=== PATIENT | female | born 2000 | race Caucasian/White ===

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

== ENCOUNTER → 2020-01-12 | Outpatient (CLI) | payer OTHER ==
[~2020-01-12] MED LIST changes: +ONDA-105 PO; -ONDA4TAB10 PO
== END ==
LOC: CARD 13:12
PROVIDERS: ATTEND Internal Medicine Interventional Cardiology
DX: R42 Dizziness and giddiness (principal); R55 Syncope and collapse; E66.9 Obesity, unspecified; R00.2 Palpitations; R06.02 Shortness of breath
CPT/HCPCS: 93306

== ENCOUNTER → 2021-06-26 | Outpatient (CLI) | payer OTHER ==
[~2021-06-26] MED LIST changes: +BUPR150T24 PO; -BUPR150T7 PO; +CLN.1T PO; -CLON0.1T PO
== END ==
LOC: LABNPT 06:47
PROVIDERS: ATTEND Family Medicine
DX: Z53.9 Procedure and treatment not carried out, unspecified reason (principal)

== ENCOUNTER 2022-09-12 11:02 | Emergency (ER) | payer OTHER ==
[~2022-09-12] VITALS: Ht 177.8 cm; Wt 91.2 kg
[~2022-09-12 11:02] MED LIST changes: +FLUC50TA22 PO; -FLUC50TA5 PO
--- NOTE | 2022-09-12 11:58 | ED Psychosocial ---
General Chief Complaint: Suicidal Ideation Risk Stated Complaint: SUICIDAL IDEATIONS Nursing Triage Note: PT AMB TO RM 9 (RM 8 OCCUPIED) W C/O SUICIDAL IDEATION SX 09/10/22. PT REPORTS SHE HAS EXPERIENCED S.I. OFF AND ON SX TEENAGE YEARS, RECENTLY SHE WAS TRIGGERED BY "FAMILY ISSUES" FURTHER REPORTING SHE DOESN'T FEEL SHE HAS ANY SUPPORT. PT STATES SHE HAS TAKEN APPROX 6-7 CLONIDINE TABLETS FOR ANXIETY OVER THE PAST 2 DAYS WHEN SHE WAS ADVISED TO TAKE 1/2 TAB. PT DENIES PLAN, STATES "I HAVE JUST BEEN DOING STUPID STUFF THE PAST FEW DAYS LIKE DRIVING ERRATICALLY." PT ALSO C/O DIZZINESS, REPORTS SHE DOES NOT PARTICIPATE IN OUTPATIENT MENTAL HEALTH SERVICES AND HAS NEVER BEEN INPATIENT. PT A&OX4, DENIES PAIN. Source: patient Exam Limitations: no limitations History of Present Illness Date Seen by Provider: Sep 12, 2022 Time Seen by Provider: 11:56 Initial Comments To ER by private vehicle with reports of suicidal thoughts. She has had this for about 2 days now after some "family issues supposed to be torn". She does live with family. She took about 6-7 Klonopin tablets last night at about 4 PM as an attempt to overdose. She has never had inpatient mental health before. She is open to going mental health inpatient somewhere. She does not have any outpatient mental health services other than taking some Klonopin and an SSRI from her primary care doctor. She is enrolled in [facility]. Timing/Duration: constant Severity: moderate Associated Symptoms: anxiety Allergies and Home Medications Allergies Coded Allergies: morphine (Verified Allergy, Mild, RASH, 07/02/17) Patient Home Medication List Home Medication List Reviewed: Yes Bupropion HCl (Bupropion Xl) 150 Mg Tab.er.24h, 150 MG PO DAILY, (Reported) Entered as Reported by: JAVIER KILPATRICK on 07/01/17 170 Clonidine HCl (Clonidine HCl) 0.1 Mg Tablet, 0.1 MG PO DAILY, (Reported) Entered as Reported by: FLAQUITA CARDONA on 05/06/18 1236 Fluconazole (Fluconazole) 50 Mg Tablet, 50 MG PO DAILY, (Reported) Entered as Reported by: JAVIER KILPATRICK on 07/01/17 1706 Hydrocodone Bit/Acetaminophen (Lortab 7.5 Mg Tablet) 1 Ea Tablet, 1-2 EACH PO Q4H Prescribed by: SAW FARMER on 05/13/18 1053 Levothyroxine Sodium (Levothyroxine Sodium) 200 Mcg Tablet, 200 MCG PO DAILY, (Reported) Entered as Reported by: FLAQUITA CARDONA on 05/06/18 123 Liraglutide (Victoza 3-Olvin) 0.6 Mg/0.1 Ml Pen.injctr, 1.8 MG PO DAILY, (Reported) Entered as Reported by: JAVIER KILPATRICK on 07/01/17 170 Metformin HCl (Metformin HCl) 850 Mg Tablet, 850 MG PO DAILY, (Reported) Entered as Reported by: JAVIER KILPATRICK on 07/01/17 170 Methylphenidate HCl (Ritalin) 10 Mg Tablet, 10 MG PO DAILY, (Reported) Entered as Reported by: FLAQUITA CARDONA on 05/06/18 123 Ondansetron HCl (Zofran) 4 Mg Tab, 4 MG PO Q4H Prescribed by: SAW FARMER on 05/13/18 1053 Pantoprazole Sodium (Protonix) 40 Mg Tablet.dr, 40 MG PO DAILY Prescribed by: SAW FARMER on 05/13/18 1053 Topiramate (Topiramate) 100 Mg Tablet, 100 MG PO DAILY, (Reported) Entered as Reported by: JAVIER KILPATRICK on 07/01/171705 Review of Systems Constitutional: see HPI EENTM: see HPI Respiratory: no symptoms reported Cardiovascular: no symptoms reported Genitourinary: no symptoms reported Musculoskeletal: no symptoms reported Skin: no symptoms reported Psychiatric/Neurological: See HPI, Anxiety, Depressed, Emotional Problems Past Kvpcewq-Mxtsau-Vezmhp Hx Patient Social History Tobacco Use?: No Use of E-Cig and/or Vaping dev: No Substance use?: No Alcohol Use?: No Immunizations Up To Date Tetanus Booster (TDap): Unknown PED Vaccines UTD: No Influenza Vaccine Up-to-Date: Yes; Up-to-Date First/Initial COVID19 Vaccinat: 2020 Second COVID19 Vaccination Naveen: 2020 Third COVID19 Vaccination Date: 2021 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: [employer] Seasonal Allergies Seasonal Allergies: No Past Medical History Surgeries: No Gallbladder Respiratory: No Cardiac: No Palpitations, Syncope Neurological: No Headaches /Migraines Last Menstrual Period: Aug 30, 2022 Reproductive Disorders: No Female Reproductive Disorders: Polycystic Ovarian Dis Sexually Transmitted Disease: No HIV/AIDS: No Genitourinary: No UTI-Chronic Gastrointestinal: No Musculoskeletal: No Endocrine: Yes (glucophage weight loss) HEENT: Yes (bad vision - has glasses) Loss of Vision: Bilateral Hearing Impairment: Denies Cancer: No Psychosocial: Yes Anxiety, Depression Integumentary: Yes (minimal ) Eczema Blood Disorders: No Adverse Reaction/Blood Tranf: No Family Medical History Diabetes mellitus Psychosocial problem Physical Exam Vital Signs - First Documented 09/12/22 11:20 Temp 36.4 Pulse 106 Resp 22 B/P (MAP) 121/92 (102) Pulse Ox 100 O2 Delivery Room Air Capillary Refill : Less Than 3 Seconds Height, Weight, BMI Height: 5'11.00" Weight: 266lbs. 0.0oz. [id number]; 28.00 BMI Method: General Appearance: WD/WN, no apparent distress HEENT: PERRL/EOMI, normal ENT inspection Neck: non-tender, full range of motion Respiratory: no respiratory distress, no accessory muscle use Cardiovascular: regular rate, rhythm, no murmur Gastrointestinal: normal bowel sounds, non tender, soft Neurologic/Psychiatric: alert, normal mood/affect, oriented x 3 Appearance/Memory: appropriate appearance, appropriate insight, neat Behavior/Eye Contact: cooperative, good eye contact, normal speech Thoughts/Hallucinations: normal thought pattern, no apparent hallucination Skin: normal color, warm/dry Progress/Results/Core Measures Results/Orders Lab Results Laboratory Tests Test 09/12/22 12:30 09/12/22 12:39 09/12/22 13:05 Range/Units Urine Color YELLOW Urine Clarity CLOUDY Urine pH 6.5 5-9 Urine Specific [place] 1.010 L 1.016-1.022 Urine Protein NEGATIVE NEGATIVE Urine Glucose (UA) NEGATIVE NEGATIVE Urine Ketones NEGATIVE NEGATIVE Urine Nitrite NEGATIVE NEGATIVE Urine Bilirubin NEGATIVE NEGATIVE Urine Urobilinogen 0.2 < = 1.0 MG/DL Urine Leukocyte Esterase NEGATIVE NEGATIVE Urine RBC (Auto) NEGATIVE NEGATIVE Urine RBC NONE /HPF Urine WBC NONE /HPF Urine Squamous Epithelial Cells 5-10 /HPF Urine Crystals NONE /LPF Urine Bacteria NEGATIVE /HPF Urine Casts NONE /LPF Urine Mucus NEGATIVE /LPF Urine Culture Indicated NO Urine Opiates Screen NEGATIVE NEGATIVE Urine Oxycodone Screen NEGATIVE NEGATIVE Urine Methadone Screen NEGATIVE NEGATIVE Urine Propoxyphene Screen NEGATIVE NEGATIVE Urine Barbiturates Screen NEGATIVE NEGATIVE Ur Tricyclic Antidepressants Screen NEGATIVE NEGATIVE Urine Phencyclidine Screen NEGATIVE NEGATIVE Urine Amphetamines Screen NEGATIVE NEGATIVE Urine Methamphetamines Screen NEGATIVE NEGATIVE Urine Benzodiazepines Screen NEGATIVE NEGATIVE Urine Cocaine Screen NEGATIVE NEGATIVE Urine Cannabinoids Screen NEGATIVE NEGATIVE SARS-CoV-2 RNA (RT-PCR) Not Detected Not Detecte White Blood Count 5.7 4.3-11.0 10^3/uL Red Blood Count 4.44 3.80-5.11 10^6/uL Hemoglobin 13.3 11.5-16.0 g/dL Hematocrit 39 35-52 % Mean Corpuscular Volume 89 80-99 fL Mean Corpuscular Hemoglobin 30 25-34 pg Mean Corpuscular Hemoglobin Concent 34 32-36 g/dL Red Cell Distribution Width 12.1 10.0-14.5 % Platelet Count 273 130-400 10^3/uL Mean Platelet Volume 9.2 9.0-12.2 fL Immature Granulocyte % (Auto) 0 % Neutrophils (%) (Auto) 43 42-75 % Lymphocytes (%) (Auto) 48 H 12-44 % Monocytes (%) (Auto) 7 0-12 % Eosinophils (%) (Auto) 1 0-10 % Basophils (%) (Auto) 1 0-10 % Neutrophils # (Auto) 2.4 1.8-7.8 10^3/uL Lymphocytes # (Auto) 2.7 1.0-4.0 10^3/uL Monocytes # (Auto) 0.4 0.0-1.0 10^3/uL Eosinophils # (Auto) 0.1 0.0-0.3 10^3/uL Basophils # (Auto) 0.0 0.0-0.1 10^3/uL Immature Granulocyte # (Auto) 0.0 0.0-0.1 10^3/uL Sodium Level 143 135-145 MMOL/L Potassium Level 3.6 3.6-5.0 MMOL/L Chloride Level 109 H 98-107 MMOL/L Carbon Dioxide Level 25 21-32 MMOL/L Anion Gap 9 5-14 MMOL/L Blood Urea Nitrogen 10 7-18 MG/DL Creatinine 0.72 0.60-1.30 MG/DL Estimat Glomerular Filtration Rate 121 BUN/Creatinine Ratio 14 Glucose Level 75 70-105 MG/DL Calcium Level 8.6 8.5-10.1 MG/DL Corrected Calcium 8.7 8.5-10.1 MG/DL Total Bilirubin 0.7 0.1-1.0 MG/DL Aspartate Amino Transf (AST/SGOT) 29 5-34 U/L Alanine Aminotransferase (ALT/SGPT) 34 0-55 U/L Alkaline Phosphatase 45 40-136 U/L Total Protein 6.5 6.4-8.2 GM/DL Albumin 3.9 3.2-4.5 GM/DL Thyroid Stimulating Hormone (TSH) 0.17 L 0.35-4.94 UIU/ML Free Thyroxine 1.15 0.70-1.48 NG/DL Salicylates Level < 5.0 L 5.0-20.0 MG/DL Acetaminophen Level < 10 L 10-30 UG/ML Serum Alcohol < 10 <10 MG/DL My Orders Orders - [place] THOMAS APRN Cbc With Automated Diff (09/12/22 11:47) Covid 19 Inhouse Test (09/12/22 11:47) Comprehensive Metabolic Panel (09/12/22 11:47) Alcohol (09/12/22 11:47) Ekg Tracing (09/12/22 11:47) Salicylate (09/12/22 11:47) Acetaminophen (09/12/22 11:47) Ed Iv/Invasive Line Start (09/12/22 11:47) Ua Culture If Indicated (09/12/22 11:47) Drug Screen Stat (Urine) (09/12/22 11:47) Thyroid Stimulating Hormone (09/12/22 14:00) Free T4 (Free Thyroxine) (09/12/22 14:39) General/Regular (09/12/22 Dinner) Vital Signs/I&O 09/12/22 11:20 Temp 36.4 Pulse 106 Resp 22 B/P (MAP) 121/92 (102) Pulse Ox 100 O2 Delivery Room Air Blood Pressure Mean: 102 Departure Impression Primary Impression: Depression Additional Impression: Suicidal ideation Disposition: 01 HOME, SELF-CARE Condition: Stable Departure-Patient Inst. Referrals: PEYTON MOCTEZUMA DO (PCP) Primary Care Physician ISAIAS MOCTEZUMA DNP (Family) Primary Care Physician Patient Instructions: OUTPT MENTAL HEALTH SERVICES Work/School Note: Work Release Form Date Seen in the Emergency Department: Sep 12, 2022 Return to Work: Sep 19, 2022 [place] THOMAS APRN Sep 12, 2022 11:58
[2022-09-12 12:43] LABS: BILIRUBIN,URINE NEGATIVE (NEGATIVE); CLARITY,URINE CLOUDY; COLOR,URINE YELLOW; GLUCOSE, URINE (UA) NEGATIVE (NEGATIVE); KETONES,URINE NEGATIVE (NEGATIVE); LEUKOCYTE ESTERASE ,URINE NEGATIVE (NEGATIVE); NITRITE,URINE NEGATIVE (NEGATIVE); PH,URINE 6.5 (5-9); PROTEIN,URINE NEGATIVE (NEGATIVE)
[2022-09-12 12:58] LABS: AMPHETAMINE SCREEN, URINE NEGATIVE (NEGATIVE); BARBITURATE SCREEN URINE NEGATIVE (NEGATIVE); BENZODIAZEPINES SCREEN URINE NEGATIVE (NEGATIVE); CANNABINOID SCREEN, URINE NEGATIVE (NEGATIVE); COCAINE SCREEN URINE NEGATIVE (NEGATIVE); METHADONE STAT NEGATIVE (NEGATIVE); OPIATE SCREEN URINE NEGATIVE (NEGATIVE); OXYCODONE STAT NEGATIVE (NEGATIVE); PROPOXYPHENE STAT NEGATIVE (NEGATIVE); TRICYCLIC ANTIDEPRESSANTS SCRE NEGATIVE (NEGATIVE)
[2022-09-12 13:04] LABS: BACTERIA,URINE NEGATIVE /HPF
[2022-09-12 13:13] LABS: BASOPHILS % (AUTO) 1 % (0-10); EOSINOPHILS # (AUTO) 0.1 10^3/uL (0.0-0.3); EOSINOPHILS % (AUTO) 1 % (0-10); HEMATOCRIT 39 % (35-52); HEMOGLOBIN 13.3 g/dL (11.5-16.0); LYMPHOCYTES # (AUTO) 2.7 10^3/uL (1.0-4.0); LYMPHOCYTES % (AUTO) 48 % (12-44); MEAN CORPUSCULAR HEMOGLOBIN 30 pg (25-34); MEAN CORPUSCULAR HGB CONC 34 g/dL (32-36); MEAN CORPUSCULAR VOLUME 89 fL (80-99); MEAN PLATELET VOLUME 9.2 fL (9.0-12.2); MONOCYTES # (AUTO) 0.4 10^3/uL (0.0-1.0); MONOCYTES % (AUTO) 7 % (0-12); NEUTROPHILS # (AUTO) 2.4 10^3/uL (1.8-7.8); NEUTROPHILS % (AUTO) 43 % (42-75); PLATELET COUNT 273 10^3/uL (130-400); WHITE BLOOD COUNT 5.7 10^3/uL (4.3-11.0)
[2022-09-12 13:31] LABS: CHLORIDE 109 MMOL/L (98-107); POTASSIUM 3.6 MMOL/L (3.6-5.0); SODIUM 143 MMOL/L (135-145)
[2022-09-12 13:32] LABS: ALBUMIN 3.9 GM/DL (3.2-4.5)
[2022-09-12 13:33] LABS: CALCIUM 8.6 MG/DL (8.5-10.1)
[2022-09-12 13:34] LABS: GLUCOSE 75 MG/DL (70-105); TOTAL PROTEIN 6.5 GM/DL (6.4-8.2)
[2022-09-12 13:35] LABS: CARBON DIOXIDE 25 MMOL/L (21-32)
[2022-09-12 13:36] LABS: BILIRUBIN,TOTAL 0.7 MG/DL (0.1-1.0)
[2022-09-12 13:38] LABS: ALKALINE PHOSPHATASE 45 U/L (40-136); CREATININE SERUM 0.72 MG/DL (0.60-1.30); GFR ESTIMATED 121
[2022-09-12 13:39] LABS: BUN/CREATININE RATIO 14
[2022-09-12 13:41] LABS: ACETAMINOPHEN < 10 UG/ML (10-30); ALANINE AMINOTRANSFERASE 34 U/L (0-55); SALICYLATE < 5.0 MG/DL (5.0-20.0)
[2022-09-12 22:01] VITALS: BP 104/65
== END 2022-09-12 21:54 ==
LOC: EDUNIT# 11:02 → ER 11:03
DX: F32.A Depression, unspecified (principal); R45.851 Suicidal ideations; Z20.822 Contact with and (suspected) exposure to COVID-19
CPT/HCPCS: 80053; 80306; 81000; 84439; 84443; 85025; 87636; 99285; G0480 ×3; 36415; 80320; 80329